=== PATIENT | female | born 1955 ===

== ENCOUNTER → 2024-05-22 | Outpatient (CLI) | payer MEDICARE, OTHER ==
[2024-05-22 14:05] VITALS: BP 117/75; PULSE 68; RESP 16; TEMP 98.2
--- NOTE | 2024-05-22 15:02 | P.SLEEP ---
History of Present Illness DATE: 05/22/2024 CONSULTATION/NEW PATIENT EVALUATION HISTORY OF PRESENT ILLNESS/SLEEP-WAKE EVALUATION: 69-year-old lady had been e valuated in the sleep center for obstructive sleep apnea hypopnea syndrome. Patient has history of obstructive sleep apnea diagnosed in [place] in 2014. Since that time patient is on treatment with CPAP every night. About 3 years ago Respironics CPAP unit, which was on a recalled was replaced. Patient continued to use this unit every night. I checked CPAP unit. Range of the pressure 9-15. Usage 98% of the time, average 5.8 hours per night. Apnea hypopnea index 4.0, which is normal SLEEP SCHEDULE: Usually sleep schedule from 9:30 PM to 5 AM 7 days a week. FALLING ASLEEP: No problems with falling asleep. DURING SLEEP: Patient sleeps on the back position, may wake up from sleep 1-2 times with nocturia. No history of hypnogogical hallucinations, sleep paralysis, or cataplexy. DURING THE DAY/WAKE STATE: Patient feels significant sleepiness during the day. [place] Sleepiness Scale is 24. Patient takes 1 nap at afternoon time. PAST MEDICAL HISTORY: Hypertension. PAST SURGICAL HISTORY: Thyroidectomy for cancer in 2019, left knee replacement, cholecystectomy. MEDICATIONS: Please see below. SOCIAL HISTORY: Please see below l. FAMILY HISTORY: Hypertension, stroke, arthritis, diabetes, during the sleep. REVIEW OF SYSTEMS: Sleepiness during the day. No fevers. No double vision. No recent chest pain. No shortness of breath. No abdominal pain. No bleeding episo mateus. No blood in urine. No seizure episodes. PHYSICAL EXAMINATION: GENERAL: A pleasant patient without any distress. VITAL SIGNS: Please see below, weight 192 pounds, BMI 35.1. HEENT: PERRLA, EOMI. Evaluation of oropharynx showed tongue protrudes midline, low position of soft palate Mallampati 4. NECK: Supple. No JVD. Thyroid is not palpable. 15.5 inches in circumference. LUNGS: Clear to percussion and to auscultation. Good air exchange. No wheezing or rhonchi. HEART: S1, S2 regular. No murmurs, gallops or rubs. ABDOMEN: Soft and nontender. Bowel sounds are present. No organomegaly ap preciated. EXTREMITIES: No clubbing or cyanosis. 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 Cranial nerves 2 to 7 intact. There is no fasciculation or atrophy noted. No focal deficits observed. ASSESSMENT: 1. Obstructive sleep apnea hypopnea syndrome diagnosed in 2015 in [place]. Patient continued to use his CPAP equipment every night for the whole night. Normal apnea hypopnea index reading from CPAP unit. 2. Mild obesity BMI 35.1. 3. Hypertension. 4. Status post thyroidectomy for cancer in 2019, on thyroid supplement. 5 status post left knee replacement. 6 . Status post cholecystectomy. 7. Significant excessive daytime sleepiness with very high [place] Sleepiness Scale dictate necessity to include hypersomnia and narcolepsy and differential diagnosis with insufficient amount of sleep. PLAN: 1. Patient will continue to use CPAP equipment every night for the whole night. 2. Prescription for all necessary CPAP supplies. 3. We will get results of previous sleep studies. 4. No driving if patiet feels any sleepiness. Patient is aware of civil and criminal liability for unsafe driving. 5. Sleep hygiene with regular sleep time for at least 8 hours. 6. Watching and losing weight. 7. Patient will need multiple sleep latency test, unless her sleepiness will improved after increasing time in bed. Thank you very much for referring this patient for consultation. Sincerely, Jonh Wright MD, PhD, FAASM. Diplomat of [place] [employer], Sleep Medicine Board by [place] [employer] [place] [employer] [facility] [place] cc: Abigail Osorio [employer]anna[employer] Past Medical History Past Medical History: Hypertension, Osteoarthritis (OA), Sleep Apnea/CPAP/BIPAP, Thyroid Disorder History of Any Multi-Drug Resistant Organisms: None Reported Past Surgical History: Cholecystectomy, Joint Replacement, Orthopedic Surgery Additional Past Surgical History / Comment(s): Thyroid removed Past Psychological History: No Psychological Hx Reported Smoking Status: Never smoker Past Alcohol Use History: Occasional Past Drug Use History: None Reported - Past Family History Mother Family Medical History: COPD, CVA/TIA, Hypertension, Osteoarthritis (OA) Father Family Medical History: Diabetes Mellitus, Hypertension Additional Family Medical History / Comment(s): snoring, during sleep Medications and Allergies Home Medications Medication Instructions Recorded Confirmed Type Levothyroxine Sodium [Levo-T] 125 mg PO DAILY 05/22/24 05/22/24 History Triamterene/Hydrochlorothiazid See Rx Instructions .ROUTE .COMPLEX 05/22/24 05/22/24 History [Triamterene-Hctz 37.5-25 mg Cp] lisinopriL 40 mg PO DAILY 05/22/24 05/22/24 History Physical Exam Vitals: Vital Signs Temp Pulse Resp BP Pulse Ox 05/22/24 14:04 98.2 F 68 16 117/75 96 Intake and Output 05/21/24 05/22/24 05/22/24 22:59 06:59 14:59 Other: Weight 87.09 kg Sleep Note - Sleep Data ESS Total: 24 - Sleep Note Sleep Note: Temperature: 98.2 F Pulse Rate: 68 Respiratory Rate: 16 Blood Pressure: 117/75 SpO2: 96 Height: 5 ft 2 in Weight: 87.09 kg BMI: Neck Circumference: 15.5
== END | disposition home or self-care (01) ==
LOC: 3 N SLEEP 13:36
PROVIDERS: ATTEND Internal Medicine
CPT/HCPCS: 99202

== ENCOUNTER → 2024-11-27 | Outpatient (CLI) | payer MEDICARE, OTHER | LOC: 3 N SLEEP 16:01 | PROVIDERS: ATTEND Internal Medicine | DX: Z53.9 Procedure and treatment not carried out, unspecified reason (principal) ==